=== PATIENT | female | born 1970 | race African-American/Black ===

== ENCOUNTER 2021-09-05 18:24 | Emergency (ER) | payer OTHER, SELFPAY ==
--- NOTE | ~2021-09-05 | XR_ITS ---
XR hip RT 2V w AP pelvis 09/05/2021 19:35 Indication: Hip pain Procedure: AP pelvis and 2 views right hip Comparison: No prior studies for comparison. Findings: Pelvic rings are intact. There is moderate bilateral osteoarthritis of the hips. Pelvic phl eboliths are present. Sacral foramen are symmetric. No acute fracture or traumatic malalignment. Impression: 1: No acute fracture. 2: Moderate osteoarthritis of the hips. Reviewed, dictated and finalized at location A. Impression: 1: No acute fracture. 2: Moderate osteoarthritis of the hips.
--- NOTE | ~2021-09-05 | XR_ITS ---
XR knee RT min 4V 09/05/2021 19:23 Indication: Right knee pain and swelling Procedure: 4 views right knee Comparison: No prior studies for comparison. Findings: There is moderate-severe tricompartment osteoarthritis, most advanced in the patellofemoral compartment. Small joint effusion. No fracture or traumatic malalignment. No significant soft tissue swelling. No foreign bodies. Impression: 1: Moderate-severe osteoarthritis of the right knee. Reviewed, dictated and finalized at location A. Impression: 1: Moderate-severe osteoarthritis of the right knee.
[2021-09-05 18:46] VITALS: BP 139/88; PULSE 94; RESP 16; TEMP 36.4; O2SAT 100
--- NOTE | 2021-09-05 19:27 | ED.LOWEXIN ---
HPI - Extremity Injury (Lower) General Chief Complaint: Extremity Injury, Lower Stated Complaint: R. knee pain Time Seen by Provider: 09/05/21 19:00 Source: patient Mode of arrival: ambulatory Limitations: no limitations History of Present Illness HPI Narrative: This is a 50 year old female who presents for evaluation of right knee pain. She states she woke up with swollen right knee 8 days ago. She reports pain is worse with walking. She denies fever or redness. She has been alternating between heat and ice. She sporadicly takes ibuprofen for her pain. She denies fall or injury. She does reports history of right knee pain and arthritis. Related Data Allergies Allergy/AdvReac Type Severity Reaction Status Date / Time clindamycin Allergy Rash Verified 09/05/21 19:03 Penicillins Allergy Rash Verified 09/05/21 18:48 Review of Systems Review of Systems: All systems reviewed & are unremarkable except as noted in HPI and below Constitutional: Constitutional: Denies chills and Denies fatigue PMFSH Past Medical History Medical History (Updated 09/05/21 @ 20:09 by Blanca Barbour MD) Cardiac defibrillator in place CHF (congestive heart failure) Diabetes mellitus Myocardial infarction Social History Social History (Updated 09/05/21 @ 20:05 by Blanca Barbour MD) Smoking status: Never smoker Exam Narrative: GENERAL: Well-appearing, well-nourished, and in no acute distress. HEAD: Normocephalic, atraumatic RESPIRATORY: No respiratory distress, Airway patent, Respirations non-labored, HEART: Normal peripheral pulses. EXTREMITIES: No edema, normal strength with full range of motion. no deformity, no increased redness or warmth at knee join SKIN: Warm, dry, normal color without rash, bilateral leg varicose veins NEURO: Alert and oriented x3. CN 2-12 grossly intact. No focal deficits. PSYCH: Normal mood and affect. Course Reevaluation(s) Reevaluation #1: I Discussed with patient that xray shows arthritis in both hip and knee. I Discussed discharge plan and treatment of knee osteoarthritis. She will get knee brace. I will placed didi bandage temporarily. She will follow up with PCP or orthopedic surgeon Date: 09/05/21 Time: 20:06 Vital Signs Vital signs: Vital Signs Temperature 97.6 F 09/05/21 18:46 Pulse Rate 94 09/05/21 18:46 Respiratory Rate 16 09/05/21 18:46 Blood Pressure 139/88 09/05/21 18:46 Pulse Oximetry 100 09/05/21 18:46 Oxygen Delivery Room Air 09/05/21 18:46 Temperature 97.6 F 09/05/21 18:46 Pulse Rate 94 09/05/21 18:46 Respiratory Rate 16 09/05/21 18:46 Blood Pressure 139/88 09/05/21 18:46 Pulse Oximetry 100 09/05/21 18:46 Oxygen Delivery Room Air 09/05/21 18:46 MDM - Extremity Injury (Lower) Imaging Data Radiologist's impression: ITS Impressions Knee X-Ray 09/05/21 19:33 Impression: 1: Moderate-severe osteoarthritis of the right knee. Hip/Pelvis X-Ray 09/05/21 19:40 Impression: 1: No acute fracture. 2: Moderate osteoarthritis of the hips. Discharge Plan Discharge Clinical Impression: Tricompartment osteoarthritis of right knee, Osteoarthritis of right hip Patient Disposition: Home, Self-Care Condition: Stable Instructions: Antibiotic Form, Osteoarthritis (ED), Knee Pain (ED) Additional Instructions: Today you were found to have moderate to severe osteoarthritis to your right knee. I recommend you get knee brace to help stabilize . Take antiinflammatory for your pain. Call your primary care provider or your orthopedic surgeon Prescriptions: New meloxicam 7.5 mg tablet 7.5 mg PO DAILY Qty: 30 0RF Follow-up/Referrals: PHYSICIAN NOT ON STAFF,NONSTAFF [Non-Staff] -
--- NOTE | 2021-09-05 19:29 | PC.NURSE ---
Pt to xray
[2021-09-05] MEDS: INDOMETHACIN 25 MG CAPSULE 50 MG PO (19:39)
== END 2021-09-05 20:26 | disposition home or self-care (01) ==
LOC: ANHED 20:19
PROVIDERS: Emergency Provider General Practice
DX: M17.11 Unilateral primary osteoarthritis, right knee (principal); M16.11 Unilateral primary osteoarthritis, right hip; I50.9 Heart failure, unspecified; E11.9 Type 2 diabetes mellitus without complications; I25.10 Atherosclerotic heart disease of native coronary artery without angina pectoris
CPT/HCPCS: 73502; 73564; 99284; A9270